=== PATIENT | female | born 1970 | race Two or more races ===

== ENCOUNTER 2018-01-20 17:13 | Emergency (ER) | payer MEDICAID ==
--- NOTE | 2018-01-20 17:24 | EDPHY ---
H & P Time Seen by Provider: 01/20/18 17:18 HPI/ROS: CHIEF COMPLAINT: Left facial droop and left arm weakness HISTORY OF PRESENT ILLNESS: Patient's symptoms started at 4:00 p.m.. Started with feeling her left side of her face weak and droopy and then progressed to her left hand feeling tingly numb and weaker than the right. Symptoms persist now, not associated with ataxia or confusion or any right-sided symptoms. No double vision. Not better worse with anything. She did take a single lorazepam before she came here. REVIEW OF SYSTEMS: Eye: no change in vision ENT: no sore throat Cardiac: no chest pain or syncope Pulmonary: no cough or SOB Abdomen: no vomiting, diarrhea, abdominal pain Musculoskeletal: no back pain Skin: no rash Neuro: no headache Constitutional: no fever : no urinary symptoms A comprehensive 10 point review of systems is otherwise negative aside from elements mentioned in the history of present illness. PAST MEDICAL HISTORY: History of viral meningitis and hypothyroidism Social history: Nonsmoker T 36.5, General Appearance: Alert and conversant, cooperative. Eyes: No scleral icterus. Pupils equal reactive extraocular motion intact ENT, Mouth: Normal mucous membranes. Respiratory: Normal respiratory effort, breath sounds equal, lungs are clear to auscultation. Cardiovascular: Regular rate and rhythm. Gastrointestinal: Abdomen is soft and non tender. Neurological: Speech slightly slurred but face is symmetric. Forehead wrinkles on both sides. 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 Speech is fluent. Can move right upper extremity and both legs normally. Sensation intact to light touch to both sides of the body and face. Skin: Warm and dry, no rashes. Musculoskeletal: No peripheral edema. Psychiatric: Not agitated. Emergency Department course/MDM: 1733: discussed with Cole Ferreira will see on monitor. CT head negative per Rosy. 174: Dr. Ferreira from [place] recommends no IV Activase, migraine more likely , recommends treatment for migraine headache. Dexamethasone 10, Reglan 10, Benadryl 25, Toradol 15 IV. 1920: Patient feels better now, back to normal, face feels fine and looks symmetric, good cat cracker operator strength bilaterally. She says she feels back to normal. Fluent speech. Stable to discharge with her son. Smoking Status: Never smoked Constitutional: Initial Vital Signs Heart Rate 95 09/21/18 17:19 Respiratory Rate 18 01/20/18 17:19 Blood Pressure 145/91 H 01/20/18 17:19 O2 Sat (%) 98 01/20/18 17:19 O2 Delivery Mode Room Air Allergies/Adverse Reactions: sumatriptan [From Imitrex] Allergy (Verified 01/20/18 17:23) Medical Decision Making - Diagnostics EKG Interpretation: 12-lead EKG interpreted by me; official reading is in computer system. My interpretation is sinus rhythm with nonspecific diffuse T-wave flattening. Imaging Results: Imaging Impressions Head CT 01/20/18 17:22 Impression: 1. No definite infarct. 2. 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 Otherwise negative [address] brain. 4. Consider MRI of the brain, if there is continued clinical concern. Findings and recommendations discussed with Emergency Department physician, Ellis Luz M.D., at 1730 hours, on January 20, 2018. Final report concurs with initial preliminary interpretation. Imaging: Discussed imaging studies w/ barrel polisher inside Radiologist Differential Diagnosis: Differential considered including but not limited to Xander's paralysis, migraine headache, ischemic stroke, intracranial mass or bleed. - Data Points Laboratory Results: Laboratory Results 01/20/18 17:22 01/20/18 17:22 01/20/18 01/20/18 01/20/18 17:29 17:22 17:22 WBC RBC Hgb POC Hgb 15.0 gm/dL gm/dL (12.6-16.3) Hct POC Hct 44 % % (38-47) MCV MCH MCHC RDW Plt Count MPV Neut % (Auto) Lymph % (Auto) [place] % (Auto) Eos % (Auto) Baso % (Auto) Nucleat RBC Rel Count Absolute Neuts (auto) Absolute Lymphs (auto) Absolute Monos (auto) Absolute Eos (auto) Absolute Basos (auto) Absolute Nucleated RBC Immature Gran % Immature Gran # PT INR POC Sodium 141 mEq/L mEq/L (135-145) Sodium 139 mEq/L mEq/L (135-145) POC Potassium 3.5 mEq/L mEq/L (3.3-5.0) Potassium 3.7 mEq/L mEq/L (3.3-5.0) POC Chloride 102 mEq/L mEq/L (97-110) Chloride 102 mEq/L mEq/L (97-110) Carbon Dioxide 27 mEq/l mEq/l (22-31) Anion Gap 10 mEq/L mEq/L (8-16) POC BUN 12 mg/dL mg/dL (7-23) BUN 14 mg/dL mg/dL (7-23) Creatinine 0.7 mg/dL mg/dL (0.6-1.0) POC Creatinine 0.7 mg/dL mg/dL (0.6-1.0) Estimated GFR > 60 Glucose 90 mg/dL mg/dL (70-100) POC Glucose 90 mg/dL mg/dL (70-100) Calcium 10.0 mg/dL mg/dL (8.5-10.4) Beta HCG, Qual NEGATIVE 01/20/18 01/20/18 17:22 17:22 WBC 7.76 10^3/uL 10^3/uL (3.80-9.50) RBC 4.53 10^6/uL 10^6/uL (4.18-5.33) Hgb 13.9 g/dL g/dL (12.6-16.3) POC Hgb Hct 41.2 % % (38.0-47.0) POC Hct MCV 90.9 fL fL (81.5-99.8) MCH 30.7 pg pg (27.9-34.1) MCHC 33.7 g/dL g/dL (32.4-36.7) RDW 13.1 % % (11.5-15.2) Plt Count 236 10^3/uL 10^3/uL (150-400) MPV 9.8 fL fL (8.7-11.7) Neut % (Auto) 65.5 % % (39.3-74.2) Lymph % (Auto) 28.1 % % (15.0-45.0) [place] % (Auto) 5.2 % % (4.5-13.0) Eos % (Auto) 0.3 % L % (0.6-7.6) Baso % (Auto) 0.6 % % (0.3-1.7) Nucleat RBC Rel Count 0.0 % % (0.0-0.2) Absolute Neuts (auto) 5.09 10^3/uL 10^3/uL (1.70-6.50) Absolute Lymphs (auto) 2.18 10^3/uL 10^3/uL (1.00-3.00) Absolute Monos (auto) 0.40 10^3/uL 10^3/uL (0.30-0.80) Absolute Eos (auto) 0.02 10^3/uL L 10^3/uL (0.03-0.40) Absolute Basos (auto) 0.05 10^3/uL 10^3/uL (0.02-0.10) Absolute Nucleated RBC 0.00 10^3/uL 10^3/uL (0-0.01) Immature Gran % 0.3 % % (0.0-1.1) Immature Gran # 0.02 10^3/uL 10^3/uL (0.00-0.10) PT 13.0 SEC SEC (12.0-15.0) INR 0.96 (0.83-1.16) POC Sodium Sodium POC Potassium Potassium POC Chloride Chloride Carbon Dioxide Anion Gap POC BUN BUN Creatinine POC Creatinine Estimated GFR Glucose POC Glucose Calcium Beta HCG, Qual Medications Given: Discontinued Medications Dexamethasone (Decadron Injection) 10 mg IVP EDNOW ONE Stop: 01/20/18 17:43 Last Admin: 01/20/18 17:52 Dose: 10 mg Diphenhydramine HCl (Benadryl Injection) 25 mg IVP EDNOW ONE Stop: 01/20/18 17:43 Last Admin: 01/20/18 17:50 Dose: 25 mg Sodium Chloride (Ns) 1,000 mls @ 0 mls/hr IV ONCE ONE; Wide Open PRN Reason: Protocol Stop: 01/20/18 17:43 Last Admin: 01/20/18 17:54 Dose: 1,000 mls Ketorolac Tromethamine (Toradol) 15 mg IVP EDNOW ONE Stop: 01/20/18 17:43 Last Admin: 01/20/18 17:54 Dose: 15 mg Metoclopramide HCl (Reglan Injection) 10 mg IVP EDNOW ONE Stop: 01/20/18 17:43 Last Admin: 01/20/18 17:48 Dose: 10 mg Point of Care Test Results: Chemistry 01/20/18 17:29 POC Sodium 141 mEq/L mEq/L (135-145) POC Potassium 3.5 mEq/L mEq/L (3.3-5.0) POC Chloride 102 mEq/L mEq/L (97-110) POC BUN 12 mg/dL mg/dL (7-23) POC Creatinine 0.7 mg/dL mg/dL (0.6-1.0) POC Glucose 90 mg/dL mg/dL (70-100) ISTAT H&H 01/20/18 17:29 POC Hgb 15.0 gm/dL gm/dL (12.6-16.3) POC Hct 44 % % (38-47) Departure - Departure Disposition: Home, Routine, Self-Care Clinical Impression: Migraine Qualifiers: Migraine type: unspecified Status migrainosus presence: without status migrainosus Intractability: not intractable Qualified Code(s): G43.909 - Migraine, unspecified, not intractable, without status migrainosus Condition: Good Instructions: Migraine Headache (ED) Referrals: CIERRA BROWNING DO [Other] - As per Instructions
[2018-01-20 17:32] LABS: PLATELET COUNT 236 10^3/uL (150-400)
[2018-01-20 17:40] LABS: INR 0.96 (0.83-1.16)
[2018-01-20] MEDS ORDERED: NS 1,000 ML IV ONE (17:42)
[2018-01-20] MEDS ORDERED: KETOROLAC 30 MG/1 ML SDV IVP ONE (17:42)
[2018-01-20] MEDS ORDERED: METOCLOPRAMIDE 10 MG/2 ML VIAL IVP ONE (17:42)
[2018-01-20] MEDS ORDERED: DEXAMETHASONE 10 MG/ML VIAL IVP ONE (17:42)
--- NOTE | 2018-01-20 17:51 | CPEKG ---
Test Reason : OPEN Blood Pressure : / mmHG Vent. Rate : 078 BPM Atrial Rate : 077 BPM P-R Int : 148 ms QRS Dur : 083 ms QT Int : 453 ms P-R-T Axes : 046 072 001 degrees QTc Int : 517 ms Sinus rhythm Borderline T abnormalities, diffuse leads Prolonged QT interval Confirmed by Rangel Caruso ([id number]) on 01/20/2018 5:51:20 PM Referred By: Confirmed By:Rangel Caruso
[2018-01-20 18:34] VITALS: BP 112/79
== END 2018-01-20 19:35 | disposition home or self-care (01) ==
DX: G43.109 Migraine with aura, not intractable, without status migrainosus (principal); E86.9 Volume depletion, unspecified
CPT/HCPCS: 82435-PO; 82565-PO; 82947-PO; 84132-PO; 84295-PO; 84520-PO; 85014-PO; 96374; J1100; J1200; J1885; J2765

== ENCOUNTER 2018-03-06 21:47 | Emergency (ER) | payer MEDICAID ==
--- NOTE | 2018-03-06 22:23 | EDPHY ---
General Time Seen by Provider: 03/06/18 22:07 Narrative: CHIEF COMPLAINT: Fall, hit my head, worried about my neck HISTORY OF PRESENT ILLNESS: Patient presents per private vehicle with complaints of a fall, striking her head and concerned about her neck. She states that she was walking her daughter 's dog around 5:00 p.m. When she was pulled to the ground. She does not know the details of how she fell, but she knows she tripped over the leash and fell backwards striking her occiput. She does not think she lost consciousness. She had a headache at the time that has improved. She says "kind of felt out of it," and describe some mild headache, dizziness left eye pain. The symptoms have significantly improved. Her concern at this time is her neck as she has had a C5-C7 fusion and she would like to make sure it is okay. She does have some mild pain in the neck, left of midline. She has no numbness, tingling or weakness. She has no visual disturbance. No vomiting. No chest, back or abdominal pain. No injury to the extremities. No other associated complaints or modifying factors. REVIEW OF SYSTEMS: 10 systems were reviewed and negative with the exception of the elements mentioned in the history of present illness. PCP: Located in [place], [place] SPECIALISTS: diabetes solutions specialist PAST MEDICAL HISTORY: Migraines, hypothyroid, degenerative disc disease, depression ANTICOAGULATED: None PAST SURGICAL HISTORY: Cervical fusion, lumbar fusion, hysterectomy SOCIAL HISTORY: Never smoker. Occasional alcohol. No drug use. Works part-time. Lives in [place] FAMILY HISTORY: Noncontributory EXAMINATION: General Appearance: Alert, no distress Head: normocephalic, atraumatic. No Bernardo sign. No raccoon eyes. no depression or deformity. Eyes: Pupils equal and round, no conjunctival pallor or injection. EOM symmetric. No diplopia with upward outward gaze in either direction. ENT, Mouth: Mucous membranes moist Neck: Soft tissue tenderness left paraspinous musculature. No midline tenderness. No crepitus, step-off deformity. There is reversal of lordosis. Midline trachea. Respiratory: Lungs are clear to auscultation Cardiovascular: Regular rate and rhythm. No murmur Gastrointestinal: Abdomen is soft and nontender Back: non-tender, no bony abnormalities Neurological: GCS 15. A&O, nonfocal, normal gait. Excellent strength of the upper lower extremities. Light sensory symmetric upper lower. Normal finger-to -nose. No pronator drift. Cranial nerves 2-12 grossly intact. Skin: Warm and dry, no rash. No petechiae. No purpura. No laceration, abrasion or contusion. Extremities: Nontender, no pedal edema Psychiatric: Mood and affect normal DIFFERENTIAL DIAGNOSES: Including but not limited to closed head injury, concussion, intracranial hemorrhage, basilar skull fracture, cervical sprain, cervical strain, cervical fracture MDM: 10:12 p.m. Mechanical fall from standing height with blunt occipital injury. She has no evidence of intracranial abnormality by [place] CT head rules or [place] criteria. No indication for CT scan by these criteria. She has concern over her neck given previous fusion. She has no midline tenderness but does have tenderness left of midline, thus I have ordered CT scan to rule out fracture. No indication for imaging otherwise. She is awake alert. No acute distress. No laceration or abrasion. 10:[address] Notified by radiologist. CT scan of the cervical spine reveals no acute changes. Chronic changes and evidence of fusion. Patient re-evaluated. She is reassured by this. We discussed the nature of closed head injury and mild post concussive type symptoms that she may experience. We discussed follow up with her established spine surgeon. We discussed rest, anti-inflammatories and Tylenol. She has an appointment with her neurologist in 2 days she will keep. We discussed ED precautions. I have answered all her questions. She is well- appearing and discharged home stable condition. SUPERVISION: This patient was independently evaluated without direct involvement of or examination by the attending physician. CONSULTATION: None - Diagnostics Imaging: Discussed imaging studies w/ call centre supervisor Radiologist, I viewed and interpreted images myself - History History Review: I reviewed the patient's medical records Smoking Status: Never smoked - Objective Vital Signs: Initial Vital Signs Temperature (C) 98.2 F 03/06/18 22:00 Heart Rate 83 03/06/18 22:00 Respiratory Rate 16 03/06/18 22:00 Blood Pressure 124/85 H 03/06/18 22:00 O2 Sat (%) 100 03/06/18 22:00 O2 Delivery Mode Room Air Allergies/Adverse Reactions: sumatriptan [From Imitrex] Allergy (Verified 01/20/18 17:23) Home Medications: Medication Instructions Recorded Aimovig Autoinjector 03/06/18 [place] Thyroid 60 MG (*) 03/06/18 Cymbalta 60 MG (*) 03/06/18 ESTRADIOL ACETATE 03/06/18 LaMICtal 03/06/18 Progesterone 03/06/18 Departure - Departure Disposition: Home, Routine, Self-Care Clinical Impression: Closed head injury Qualifiers: Encounter type: initial encounter Qualified Code(s): S09.90XA - Unspecified injury of head, initial encounter Acute cervical myofascial strain Qualifiers: Encounter type: initial encounter Qualified Code(s): S16.1XXA - Strain of muscle, fascia and tendon at neck level, initial encounter Condition: Good Instructions: Cervical Strain (DC), Concussion (ED), Head Injury (ED), Cervical Sprain (ED), Cyclobenzaprine (By mouth) Additional Instructions: 1. Flexeril as prescribed as needed every 8 hr 2. Ibuprofen or Tylenol [id number] as needed every 6-8 hours 3. Follow up with her established physicians for further care 4. ED precautions for numbness, tingling, weakness, severe headache, neck pain or stiffness, nausea vomiting Referrals: CIERRA RUSSELL DO [Other] - As per Instructions
[2018-03-06] MEDS ORDERED: CYCLOBENZAPRINE 10MG PREPACK#3 BTL TAKEHOME ONE (22:58)
[2018-03-06 23:12] VITALS: BP 106/63
== END 2018-03-06 23:15 | disposition home or self-care (01) ==
DX: S16.1XXA Strain of muscle, fascia and tendon at neck level, initial encounter (principal); S09.90XA Unspecified injury of head, initial encounter; W01.0XXA Fall on same level from slipping, tripping and stumbling without subsequent striking against object, initial encounter; Y93.K1 Activity, walking an animal; Z98.1 Arthrodesis status